=== PATIENT | female | born 1950 | race Hispanic/Latino ===

== ENCOUNTER 2018-03-14 19:11 | Inpatient (IN) | payer MEDICARE ==
[~2018-03-14] VITALS: Ht 152.4 cm; Wt 50.8 kg
[~2018-03-14 19:11] MED LIST: CLIN300C9 PO; GABA300S PO; LISI-613 PO; SIMV40TA5 PO; TYL3 PO
[2018-03-14] MEDS ORDERED: TETANUS/DIPHTHERIA TOXOID [ADULT] 0.5 ML VIAL IM ONE (20:38)
[2018-03-14 20:48] LABS: BASOPHILS % (AUTO) 1.7 % (0.0-5.0); HEMATOCRIT 30.1 % (36-48); LYMPHOCYTES % (AUTO) 33.9 % (21.0-51.0); MEAN CORPUSCULAR HEMOGLOBIN 28.8 pg (27.0-33.0); MEAN CORPUSCULAR VOLUME 87.3 fL (79-99); MONOCYTES % (AUTO) 6.5 % (3.0-13.0); NEUTROPHILS % (AUTO) 46.9 % (40.0-77.0); NUCLEATED RED BLOOD CELLS 0.1 % (0.0-0.19); PLATELET COUNT (AUTO) 200 K/uL (130-400); RED BLOOD CELL COUNT(AUTO) 3.44 MIL/uL (4.00-5.50); WHITE BLOOD COUNT (AUTO) 7.7 K/uL (4.8-10.8)
[2018-03-14] MEDS ORDERED: SODIUM CHLORIDE 0.9% 1000ML 2,000 ML IV ONE (20:48)
[2018-03-14 21:07] LABS: INR 0.85 (0.85-1.15); PARTIAL THROMBOPLASTIN TIME 26.6 SEC (26.3-35.5)
[2018-03-14 21:12] LABS: ALBUMIN 2.2 g/dL (3.5-5.0); BILIRUBIN,TOTAL 0.1 mg/dL (0.2-1.0); CREATININE 1.4 mg/dL (0.5-1.5); POTASSIUM 5.2 mmol/L (3.5-5.1); TOTAL PROTEIN, SERUM 6.9 g/dL (6.0-8.3)
[2018-03-14] MEDS ORDERED: INSULIN HUMULIN R 100 UNIT/ML 3ML ONE (21:59)
[2018-03-14] MEDS ORDERED: DEXTROSE 50%-WATER 50 ML DISP.SYRIN IV PRN (23:00)
[2018-03-14] MEDS: SODIUM CHLORIDE 0.9% 1000ML 1,000 ML IV SCH (23:00)
[2018-03-14] MEDS ORDERED: GLUCAGON 1MG KIT 1 MG ML IM PRN (23:00)
[2018-03-14 23:30] LABS: MAGNESIUM 2.9 mg/dL (1.80-2.40); PHOSPHORUS 4.4 mg/dL (2.5-4.9)
[2018-03-14 23:35] LABS: HEMOGLOBIN A1C 13.4 % (4.0-6.0)
[2018-03-14 23:40] LABS: ABG BASE EXCESS -3.7 mmol/L (-2.0-3.0); ABG HCO3 21.3 mmol/L (21.0-28.0); ABG OXYGEN SATURATION 96.9 % (95.0-99.0); ABG PCO2 39 mmHg (32-45)
[2018-03-14] MEDS ORDERED: SODIUM CHLORIDE 0.9% 1000ML 1,000 ML IV ONE (23:45)
[2018-03-15] VITALS (7 sets, daily range): BP systolic 106–210; BP diastolic 44–105
[2018-03-15] MEDS ORDERED: HYDROCODONE/ACETAMINOPHEN 5/325 MG TAB PO PRN ×2
[2018-03-15] MEDS ORDERED: ACETAMINOPHEN 325 MG TAB PO PRN
[2018-03-15] MEDS ORDERED: ONDANSETRON HCL 4 MG/2 ML VIAL IV PRN
[2018-03-15] MEDS ORDERED: INSULIN HUMULIN R 100 UNIT/ML 3ML ONE (00:15)
[2018-03-15 05:34] LABS: HEMATOCRIT 28.1 % (36-48); MEAN CORPUSCULAR HEMOGLOBIN 28.9 pg (27.0-33.0); MEAN CORPUSCULAR HGB CONC 33.6 g/dL (32.0-36.0); MEAN CORPUSCULAR VOLUME 85.9 fL (79-99); PLATELET COUNT (AUTO) 230 K/uL (130-400); RED BLOOD CELL COUNT(AUTO) 3.27 MIL/uL (4.00-5.50); RED CELL DISTRIBUTION WIDTH 13.2 % (11.0-15.5)
[2018-03-15 05:51] LABS: ALBUMIN 1.5 g/dL (3.5-5.0); BILIRUBIN,TOTAL 0.1 mg/dL (0.2-1.0); CREATININE 0.9 mg/dL (0.5-1.5); MAGNESIUM 2.4 mg/dL (1.80-2.40); PHOSPHORUS 2.8 mg/dL (2.5-4.9); POTASSIUM 3.6 mmol/L (3.5-5.1); TOTAL PROTEIN, SERUM 5.2 g/dL (6.0-8.3)
[2018-03-15] MEDS: INSULIN HUMULIN R 100 UNIT/ML 3ML SQ SCH ×4 (06:36→21:00)
[2018-03-15] MEDS: SODIUM CHLORIDE 0.9% 1000ML 1,000 ML IV SCH ×3 (06:36→22:25)
[2018-03-15] MEDS ORDERED: PNEUMOCOCCAL VACCINE POLYVALENT 0.5 ML/VIAL [PPV] IM SCH (08:30)
[2018-03-15] MEDS: PANTOPRAZOLE SODIUM 40 MG TABLET.DR PO SCH (08:35)
[2018-03-15] MEDS: ENOXAPARIN SODIUM 30 MG/0.3 ML SQ SCH (08:35)
[2018-03-15] MEDS: NEOMY SULF/BACITRAC ZN/POLY OINT 30GM TUBE TP SCH ×2 (08:36→21:00)
[2018-03-15] MEDS ORDERED: FURO20TA4 PO (08:47)
[2018-03-15] MEDS ORDERED: LISI-613 PO (08:47)
[2018-03-15] MEDS ORDERED: SITA1TAB6 PO (08:47)
[2018-03-15] MEDS ORDERED: CILO50TA PO (08:47)
[2018-03-15] MEDS ORDERED: ONDA4TAB10 PO (08:47)
[2018-03-15] MEDS ORDERED: ATOR10TA69 PO (08:47)
[2018-03-15] MEDS ORDERED: INSU100I21 SQ (08:47)
[2018-03-15] MEDS ORDERED: ASPI-1181 PO (08:47)
[2018-03-15] MEDS ORDERED: GABA-529 PO (08:47)
[2018-03-15] MEDS ORDERED: CLOP75TA32 PO (08:47)
[2018-03-15] MEDS ORDERED: HYDRALAZINE HCL 20 MG/ML VIAL ONE (11:17)
[2018-03-15] MEDS ORDERED: HYDRALAZINE HCL 20 MG/ML VIAL IV PRN (11:30)
[2018-03-15] MEDS: CLINDAMYCIN 600 MG/D5% WATER 50 ML IV SCH ×2 (13:12→22:26)
[2018-03-15] MEDS: INSULIN GLARGINE 100 UNITS/ML 10 ML VIAL SQ SCH (17:14)
[2018-03-15] MEDS ORDERED: PNEUMOCOCCAL VACCINE POLYVALENT 0.5 ML/VIAL [PPV] IM ONE (19:59)
[2018-03-15] MEDS ORDERED: ATORVASTATIN CALCIUM 10 MG TABLET PO SCH (21:00)
[2018-03-15] MEDS: GABAPENTIN 100 MG CAPSULE PO SCH (22:23)
[2018-03-15] MEDS: CILOSTAZOL 100 MG TAB PO SCH (22:24)
[2018-03-16] VITALS (7 sets, daily range): BP systolic 124–170; BP diastolic 64–84
[2018-03-16] MEDS: CLINDAMYCIN 600 MG/D5% WATER 50 ML IV SCH ×3 (05:24→13:08)
[2018-03-16 05:57] LABS: EOSINOPHILS % (AUTO) 13.9 % (0.0-8.0); HEMATOCRIT 25.7 % (36-48); LYMPHOCYTES % (AUTO) 27.5 % (21.0-51.0); MEAN CORPUSCULAR HGB CONC 33.8 g/dL (32.0-36.0); MEAN CORPUSCULAR VOLUME 85.9 fL (79-99); MONOCYTES % (AUTO) 6.7 % (3.0-13.0); NEUTROPHILS % (AUTO) 50.9 % (40.0-77.0); PLATELET COUNT (AUTO) 211 K/uL (130-400); RED BLOOD CELL COUNT(AUTO) 2.99 MIL/uL (4.00-5.50); RED CELL DISTRIBUTION WIDTH 13.4 % (11.0-15.5); WHITE BLOOD COUNT (AUTO) 10.3 K/uL (4.8-10.8)
[2018-03-16 06:15] LABS: CREATININE 1.3 mg/dL (0.5-1.5); POTASSIUM 4.8 mmol/L (3.5-5.1)
[2018-03-16] MEDS: INSULIN HUMULIN R 100 UNIT/ML 3ML SQ SCH ×2 (06:33→11:30)
[2018-03-16] MEDS: INSULIN GLARGINE 100 UNITS/ML 10 ML VIAL SQ SCH (06:48)
[2018-03-16] MEDS ORDERED: FUROSEMIDE 20 MG TABLET PO SCH (09:00)
[2018-03-16] MEDS ORDERED: LISINOPRIL 20 MG TABLET PO SCH (09:00)
[2018-03-16] MEDS ORDERED: CLOPIDOGREL BISULFATE 75 MG TAB PO SCH (09:00)
[2018-03-16] MEDS ORDERED: ASPIRIN 81 MG EC TAB PO SCH (09:00)
[2018-03-16] MEDS: CILOSTAZOL 100 MG TAB PO SCH (10:40)
[2018-03-16] MEDS: GABAPENTIN 100 MG CAPSULE PO SCH (10:41)
[2018-03-16] MEDS: NEOMY SULF/BACITRAC ZN/POLY OINT 30GM TUBE TP SCH (10:41)
[2018-03-16] MEDS: PANTOPRAZOLE SODIUM 40 MG TABLET.DR PO SCH (10:41)
[2018-03-16] MEDS: ENOXAPARIN SODIUM 30 MG/0.3 ML SQ SCH (10:41)
[2018-03-16] MEDS ORDERED: CLIN300C9 PO (12:21)
== END 2018-03-16 20:00 | disposition home or self-care (01) | DRG 603 ==
LOC: EDH 19:11 → EDHIP 22:30 → 3DH 03-15 01:05
PROVIDERS: ADMIT Internal Medicine; ATTEND Internal Medicine
PROC: 3E0234Z Introduction of Serum, Toxoid and Vaccine into Muscle, Percutaneous Approach (ICD-10-PCS; principal; 2018-03-14)
PROC: 3E0234Z Introduction of Serum, Toxoid and Vaccine into Muscle, Percutaneous Approach (ICD-10-PCS; 2018-03-14)
DX: L03.115 Cellulitis of right lower limb (principal); E87.1 Hypo-osmolality and hyponatremia; S09.90XA Unspecified injury of head, initial encounter; L03.116 Cellulitis of left lower limb; N95.0 Postmenopausal bleeding; S80.211A Abrasion, right knee, initial encounter; E11.65 Type 2 diabetes mellitus with hyperglycemia; E11.40 Type 2 diabetes mellitus with diabetic neuropathy, unspecified; E11.51 Type 2 diabetes mellitus with diabetic peripheral angiopathy without gangrene; E78.5 Hyperlipidemia, unspecified; I10 Essential (primary) hypertension; X58.XXXA Exposure to other specified factors, initial encounter; M19.90 Unspecified osteoarthritis, unspecified site; W01.0XXA Fall on same level from slipping, tripping and stumbling without subsequent striking against object, initial encounter; Y93.89 Activity, other specified; Y92.89 Other specified places as the place of occurrence of the external cause; Y99.8 Other external cause status; Z88.8 Allergy status to other drugs, medicaments and biological substances; Z59.0 Homelessness; Z83.3 Family history of diabetes mellitus; Z82.49 Family history of ischemic heart disease and other diseases of the circulatory system; Z23 Encounter for immunization
CPT/HCPCS: 36415; 36600; 70450; 71045; 72125; 73562; 76856; 80048; 80053; 82009; 82270; 82550; 82803; 82948; 83036; 83735; 84100; 84484; 85025; 85027; 85610; 85730; 90714; 90732; 93005; 93971; G0009; J0360; J1650; J1815; J3490; J7030; J7070

== ENCOUNTER 2018-07-24 23:56 | Inpatient (IN) | payer MEDICARE | END 2018-08-01 17:35 | LOC: EDH 23:56 → EDHIP 07-25 01:55 → 3CH 07-25 12:57 | DX: I12.9 Hypertensive chronic kidney disease with stage 1 through stage 4 chronic kidney disease, or unspecified chronic kidney disease (principal); J18.9 Pneumonia, unspecified organism; I50.33 Acute on chronic diastolic (congestive) heart failure; N17.9 Acute kidney failure, unspecified; J90 Pleural effusion, not elsewhere classified; N18.4 Chronic kidney disease, stage 4 (severe); I50.9 Heart failure, unspecified; N18.3 Chronic kidney disease, stage 3 (moderate); J20.9 Acute bronchitis, unspecified; M94.0 Chondrocostal junction syndrome [Tietze] ==

== ENCOUNTER 2018-11-20 20:24 | Inpatient (IN) | payer MEDICARE ==
[~2018-11-20] VITALS: Ht 152.4 cm; Wt 49.4 kg
[~2018-11-20 20:24] MED LIST changes: +AMLO5TAB9 PO; +ASPI-1181 PO; +ATOR10TA69 PO; +CILO50TA PO; +CLOP75TA32 PO; +FURO20TA4 PO; +GABA-529 PO; -GABA300S PO; +INSU100I21 SQ; +ONDA4TAB10 PO; -SIMV40TA5 PO; +SITA1TAB6 PO; -TYL3 PO
[2018-11-20 21:10] LABS: BASOPHILS % (AUTO) 2.1 % (0.0-5.0); EOSINOPHILS % (AUTO) 18.5 % (0.0-8.0); HEMATOCRIT 38.4 % (36-48); MEAN CORPUSCULAR HEMOGLOBIN 29.1 pg (27.0-33.0); MEAN CORPUSCULAR HGB CONC 32.3 g/dL (32.0-36.0); MEAN CORPUSCULAR VOLUME 90.1 fL (79-99); NEUTROPHILS % (AUTO) 59.4 % (40.0-77.0); NUCLEATED RED BLOOD CELLS 0.1 % (0.0-0.19); PLATELET COUNT (AUTO) 292 K/uL (130-400); RED BLOOD CELL COUNT(AUTO) 4.26 MIL/uL (4.00-5.50); WHITE BLOOD COUNT (AUTO) 8.8 K/uL (4.8-10.8)
[2018-11-20 21:20] LABS: CARBON DIOXIDE 27 mmol/L (21-32); CHLORIDE 100 mmol/L (101-111); CREATININE 1.7 mg/dL (0.5-1.5); GLOMERULAR FILTR. RATE CALC 32 mL/min (>60); GLUCOSE,RANDOM 285 mg/dL (70-105); POTASSIUM 4.3 mmol/L (3.5-5.1); SODIUM SERUM 136 mmol/L (136-145); UREA NITROGEN, BLOOD 18 mg/dL (7-18)
[2018-11-20 21:25] LABS: ALANINE AMINOTRANSFERASE 15 U/L (12-78); ALBUMIN 2.8 g/dL (3.5-5.0); ASPARTATE AMINOTRANSFERASE 41 U/L (10-37); BILIRUBIN,DIRECT < 0.1 mg/dL (0.0-0.3); BILIRUBIN,TOTAL 0.6 mg/dL (0.2-1.0); TOTAL PROTEIN, SERUM 7.3 g/dL (6.0-8.3)
[2018-11-21] MEDS ORDERED: FUROSEMIDE 10 MG/ML 4ML VIAL ONE ×2 (00:32→06:09)
[2018-11-21] MEDS ORDERED: LORAZEPAM 2 MG/ML 1 ML VIAL ONE (01:08)
[2018-11-21] MEDS ORDERED: ONDANSETRON HCL 4 MG/2 ML VIAL IV PRN (01:15)
[2018-11-21] MEDS ORDERED: GLUCAGON 1MG KIT 1 MG ML IM PRN (01:15)
[2018-11-21] MEDS ORDERED: ACETAMINOPHEN 325 MG TAB PO PRN (01:15)
[2018-11-21] MEDS ORDERED: DEXTROSE 50%-WATER 50 ML DISP.SYRIN IV PRN (01:15)
[2018-11-21] MEDS ORDERED: NITROGLYCERIN 0.4 MG SL TAB SL PRN (01:15)
[2018-11-21 01:57] LABS: HEMOGLOBIN A1C 6.7 % (4.0-6.0)
[2018-11-21] MEDS: FUROSEMIDE 10 MG/ML 4ML VIAL IV SCH ×2 (06:00→18:00)
[2018-11-21 06:15] LABS: EOSINOPHILS % (AUTO) 17.5 % (0.0-8.0); HEMATOCRIT 34.9 % (36-48); LYMPHOCYTES % (AUTO) 7.3 % (21.0-51.0); MEAN CORPUSCULAR HGB CONC 32.1 g/dL (32.0-36.0); MEAN CORPUSCULAR VOLUME 90.4 fL (79-99); MONOCYTES % (AUTO) 2.2 % (3.0-13.0); NUCLEATED RED BLOOD CELLS 0.1 % (0.0-0.19); PLATELET COUNT (AUTO) 258 K/uL (130-400); RED BLOOD CELL COUNT(AUTO) 3.86 MIL/uL (4.00-5.50); RED CELL DISTRIBUTION WIDTH 16.5 % (11.0-15.5); WHITE BLOOD COUNT (AUTO) 9.3 K/uL (4.8-10.8)
[2018-11-21 06:23] LABS: ALBUMIN 2.2 g/dL (3.5-5.0); BILIRUBIN,TOTAL 0.1 mg/dL (0.2-1.0); CREATININE 1.8 mg/dL (0.5-1.5); POTASSIUM 4.2 mmol/L (3.5-5.1); TOTAL PROTEIN, SERUM 6.2 g/dL (6.0-8.3)
[2018-11-21 06:43] LABS: B-TYPE NATRIURETIC PEPTIDE 1800 pg/mL (0-100)
[2018-11-21] MEDS: INSULIN HUMULIN R 100 UNIT/ML 3ML SQ SCH ×4 (07:30→21:30)
[2018-11-21] MEDS ORDERED: ACETAMINOPHEN 325 MG TAB ONE (07:46)
[2018-11-21] MEDS ORDERED: INSULIN HUMULIN R 100 UNIT/ML 3ML ONE (08:02)
[2018-11-21 08:40] VITALS: BP 186/73
[2018-11-21 11:00] VITALS: BP 165/76
[2018-11-21] MEDS: FAMOTIDINE 20MG TAB 20 MG TAB PO SCH (11:30)
[2018-11-21] MEDS: ENOXAPARIN SODIUM 30 MG/0.3 ML SQ SCH (11:31)
[2018-11-21 16:00] VITALS: BP 155/79
[2018-11-21] MEDS: ACETAMINOPHEN 325 MG TAB PO PRN (16:50)
[2018-11-21 20:10] VITALS: BP 183/73
[2018-11-22] VITALS (7 sets, daily range): BP systolic 156–188; BP diastolic 67–88
[2018-11-22] MEDS: HYDRALAZINE HCL 20 MG/ML VIAL IV PRN ×2 (00:44→21:59)
[2018-11-22 04:59] LABS: HEMATOCRIT 35.7 % (36-48); MEAN CORPUSCULAR HEMOGLOBIN 29.4 pg (27.0-33.0); MEAN CORPUSCULAR HGB CONC 32.4 g/dL (32.0-36.0); MEAN CORPUSCULAR VOLUME 90.5 fL (79-99); PLATELET COUNT (AUTO) 293 K/uL (130-400); RED BLOOD CELL COUNT(AUTO) 3.94 MIL/uL (4.00-5.50); RED CELL DISTRIBUTION WIDTH 16.4 % (11.0-15.5); WHITE BLOOD COUNT (AUTO) 8.2 K/uL (4.8-10.8)
[2018-11-22 05:21] LABS: B-TYPE NATRIURETIC PEPTIDE 3180 pg/mL (0-100)
[2018-11-22 05:23] LABS: ALBUMIN 2.2 g/dL (3.5-5.0); BILIRUBIN,TOTAL 0.2 mg/dL (0.2-1.0); CREATININE 2.4 mg/dL (0.5-1.5); PHOSPHORUS 4.2 mg/dL (2.5-4.9); POTASSIUM 4.3 mmol/L (3.5-5.1); TOTAL PROTEIN, SERUM 6.4 g/dL (6.0-8.3)
[2018-11-22] MEDS: FUROSEMIDE 10 MG/ML 4ML VIAL IV SCH ×2 (05:24→18:42)
[2018-11-22 06:03] LABS: BAND NEUTROPHILS % (MANUAL) 10 % (0-2); EOSINOPHILS % (MANUAL) 6 % (1-6); LYMPHOCYTES % (MANUAL) 14 % (22-44); MONOCYTES % (MANUAL) 8 % (2-9); SEGMENTED NEUTROPHILS % 62 % (40-70)
[2018-11-22 06:04] LABS: MAN.DIFF COMMENT-IMPRESSION MANUAL DIFFERENTIAL; PLATELET MORPHOLOGY COMMENT ADEQUATE
[2018-11-22] MEDS: INSULIN HUMULIN R 100 UNIT/ML 3ML SQ SCH ×4 (06:27→21:00)
[2018-11-22] MEDS: AMLODIPINE BESYLATE 5 MG TAB PO SCH (09:38)
[2018-11-22] MEDS: FAMOTIDINE 20MG TAB 20 MG TAB PO SCH (09:38)
[2018-11-22] MEDS: ENOXAPARIN SODIUM 30 MG/0.3 ML SQ SCH (09:39)
[2018-11-22] MEDS ORDERED: HEPARIN SODIUM 5000UNIT/ML 1ML VIAL ONE (14:20)
[2018-11-22] MEDS: LORAZEPAM 2 MG/ML 1 ML VIAL IVP PRN (16:10)
[2018-11-22] MEDS: NYSTATIN 15 GM POWDER TP SCH (21:45)
[2018-11-23] VITALS (7 sets, daily range): BP systolic 154–193; BP diastolic 55–99
[2018-11-23] MEDS: HYDRALAZINE HCL 20 MG/ML VIAL IV PRN ×2 (04:04→10:21)
[2018-11-23] MEDS: FUROSEMIDE 10 MG/ML 4ML VIAL IV SCH ×2 (06:15→18:00)
[2018-11-23] MEDS: INSULIN HUMULIN R 100 UNIT/ML 3ML SQ SCH ×4 (06:17→21:00)
[2018-11-23] MEDS: AMLODIPINE BESYLATE 5 MG TAB PO SCH (08:39)
[2018-11-23] MEDS: ENOXAPARIN SODIUM 30 MG/0.3 ML SQ SCH (08:39)
[2018-11-23] MEDS: FAMOTIDINE 20MG TAB 20 MG TAB PO SCH (08:39)
[2018-11-23] MEDS: LORAZEPAM 2 MG/ML 1 ML VIAL IVP PRN (08:41)
[2018-11-23] MEDS: NYSTATIN 15 GM POWDER TP SCH ×3 (09:00→22:14)
[2018-11-23] MEDS: OLANZAPINE ODT 5 MG TAB SL SCH (22:13)
[2018-11-23] MEDS: RISPERIDONE 1 MG TABLET PO SCH (22:48)
[2018-11-24 03:41] VITALS: BP 174/82
[2018-11-24 04:29] LABS: BASOPHILS % (AUTO) 2.8 % (0.0-5.0); EOSINOPHILS % (AUTO) 8.6 % (0.0-8.0); HEMATOCRIT 34.7 % (36-48); MEAN CORPUSCULAR HGB CONC 32.6 g/dL (32.0-36.0); MEAN CORPUSCULAR VOLUME 89.2 fL (79-99); MONOCYTES % (AUTO) 8.5 % (3.0-13.0); NEUTROPHILS % (AUTO) 62.1 % (40.0-77.0); PLATELET COUNT (AUTO) 268 K/uL (130-400); RED BLOOD CELL COUNT(AUTO) 3.89 MIL/uL (4.00-5.50); RED CELL DISTRIBUTION WIDTH 16.7 % (11.0-15.5)
[2018-11-24 04:41] LABS: B-TYPE NATRIURETIC PEPTIDE 1970 pg/mL (0-100)
[2018-11-24 04:50] LABS: CREATININE 2.2 mg/dL (0.5-1.5); POTASSIUM 3.3 mmol/L (3.5-5.1)
[2018-11-24] MEDS: FUROSEMIDE 10 MG/ML 4ML VIAL IV SCH ×2 (06:13→18:06)
[2018-11-24] MEDS: INSULIN HUMULIN R 100 UNIT/ML 3ML SQ SCH ×4 (06:33→21:00)
[2018-11-24 06:35] VITALS: BP 159/65
[2018-11-24] MEDS ORDERED: POTASSIUM CHLORIDE 20 MEQ ERTAB PO SCH (07:00)
[2018-11-24 08:00] VITALS: BP 166/71
[2018-11-24 12:00] VITALS: BP 188/81
[2018-11-24] MEDS: FAMOTIDINE 20MG TAB 20 MG TAB PO SCH (12:25)
[2018-11-24] MEDS: AMLODIPINE BESYLATE 5 MG TAB PO SCH ×2 (12:25→20:27)
[2018-11-24] MEDS: OLANZAPINE ODT 5 MG TAB SL SCH ×2 (12:25→18:00)
[2018-11-24] MEDS: RISPERIDONE 1 MG TABLET PO SCH ×3 (12:25→20:26)
[2018-11-24] MEDS: ACETAMINOPHEN 325 MG TAB PO PRN (12:28)
[2018-11-24] MEDS: ENOXAPARIN SODIUM 30 MG/0.3 ML SQ SCH (12:29)
[2018-11-24] MEDS: NYSTATIN 15 GM POWDER TP SCH ×3 (12:31→20:31)
[2018-11-24] MEDS: HYDRALAZINE HCL 20 MG/ML VIAL IV PRN (12:35)
[2018-11-24 16:00] VITALS: BP 169/72
[2018-11-24] MEDS ORDERED: POTASSIUM CHLORIDE 20 MEQ ERTAB PO ONE (18:04)
[2018-11-24 20:00] VITALS: BP 177/80
[2018-11-24] MEDS: METOPROLOL TARTRATE 25 MG TAB PO SCH (20:27)
[2018-11-25] VITALS: BP 184/82
[2018-11-25] MEDS: LORAZEPAM 1 MG TABLET PO PRN (02:42)
[2018-11-25 04:00] VITALS: BP 206/87
[2018-11-25] MEDS: HYDRALAZINE HCL 20 MG/ML VIAL IV PRN (04:33)
[2018-11-25 05:20] VITALS: BP 172/84
[2018-11-25] MEDS: FUROSEMIDE 10 MG/ML 4ML VIAL IV SCH ×2 (06:18→17:50)
[2018-11-25] MEDS: INSULIN HUMULIN R 100 UNIT/ML 3ML SQ SCH ×4 (06:22→21:00)
[2018-11-25 07:19] LABS: HEPATITIS A ANTIBODY IGM Negative (Negative); HEPATITIS B CORE IGM Negative (Negative); HEPATITIS Bs ANTIGEN SCREEN P Negative (Negative)
[2018-11-25 08:00] VITALS: BP 133/61
[2018-11-25] MEDS: OLANZAPINE ODT 5 MG TAB SL PRN ×2 (08:11→13:58)
[2018-11-25] MEDS: RISPERIDONE 1 MG TABLET PO SCH ×3 (08:11→21:45)
[2018-11-25] MEDS: NYSTATIN 15 GM POWDER TP SCH ×3 (08:12→21:50)
[2018-11-25] MEDS: AMLODIPINE BESYLATE 5 MG TAB PO SCH ×2 (09:00→21:00)
[2018-11-25] MEDS: ENOXAPARIN SODIUM 30 MG/0.3 ML SQ SCH (09:00)
[2018-11-25] MEDS: FAMOTIDINE 20MG TAB 20 MG TAB PO SCH (09:00)
[2018-11-25] MEDS: METOPROLOL TARTRATE 25 MG TAB PO SCH ×2 (09:00→21:00)
[2018-11-25] MEDS ORDERED: HALOPERIDOL LACTATE 5 MG/ML VIAL IM SCH (14:28)
[2018-11-25] MEDS: OLANZAPINE ODT 5 MG TAB SL SCH ×3 (15:00→21:45)
[2018-11-25] MEDS ORDERED: OLANZAPINE ODT 5 MG TAB SL PRN (15:12)
[2018-11-25 16:00] VITALS: BP 185/87
[2018-11-25 19:30] VITALS: BP 176/81
[2018-11-25] MEDS ORDERED: DIAZEPAM 5 MG TABLET PO ONE (21:00)
[2018-11-25] MEDS: MEMANTINE HCL 5 MG TABLET PO SCH (21:45)
[2018-11-26 00:05] LABS: AMMONIA 4 umol/L (11-32)
[2018-11-26 03:56] VITALS: BP 193/77
[2018-11-26] MEDS: FUROSEMIDE 10 MG/ML 4ML VIAL IV SCH ×2 (04:04→17:48)
[2018-11-26] MEDS: HYDRALAZINE HCL 20 MG/ML VIAL IV PRN (04:05)
[2018-11-26 05:08] LABS: HEMATOCRIT 34.6 % (36-48); MEAN CORPUSCULAR HGB CONC 32.4 g/dL (32.0-36.0); MEAN CORPUSCULAR VOLUME 89.5 fL (79-99); PLATELET COUNT (AUTO) 256 K/uL (130-400); RED BLOOD CELL COUNT(AUTO) 3.86 MIL/uL (4.00-5.50); RED CELL DISTRIBUTION WIDTH 16.9 % (11.0-15.5)
[2018-11-26 05:12] LABS: CREATININE 3.2 mg/dL (0.5-1.5); POTASSIUM 4.1 mmol/L (3.5-5.1)
[2018-11-26] MEDS: INSULIN HUMULIN R 100 UNIT/ML 3ML SQ SCH ×4 (06:25→20:58)
[2018-11-26 07:39] VITALS: BP 160/67
[2018-11-26] MEDS: FAMOTIDINE 20MG TAB 20 MG TAB PO SCH (09:00)
[2018-11-26] MEDS: METOPROLOL TARTRATE 25 MG TAB PO SCH ×2 (09:00→20:57)
[2018-11-26] MEDS: RISPERIDONE 1 MG TABLET PO SCH ×3 (09:00→20:57)
[2018-11-26] MEDS: OLANZAPINE ODT 5 MG TAB SL SCH ×3 (09:00→20:57)
[2018-11-26] MEDS: AMLODIPINE BESYLATE 5 MG TAB PO SCH ×2 (09:00→20:57)
[2018-11-26 11:15] VITALS: BP 133/57
[2018-11-26] MEDS: NYSTATIN 15 GM POWDER TP SCH ×3 (11:56→21:03)
[2018-11-26] MEDS: ENOXAPARIN SODIUM 30 MG/0.3 ML SQ SCH (12:11)
[2018-11-26] MEDS ORDERED: NITROGLYCERIN 0.4 MG SL TAB SL PRN (13:30)
[2018-11-26] MEDS ORDERED: SODIUM CHLORIDE 0.9% 1000ML 1,000 ML IV PRN (13:30)
[2018-11-26] MEDS ORDERED: 0.9% SODIUM CHLORIDE 1000 ML IV BAG IV PRN (13:30)
[2018-11-26] MEDS ORDERED: HEPARIN SODIUM 5000UNIT/ML 1ML VIAL IJ PRN ×2 (13:30)
[2018-11-26] MEDS ORDERED: LIDOCAINE HCL-MPF 1% 2ML VIAL IJ PRN (13:30)
[2018-11-26] MEDS: MEMANTINE HCL 5 MG TABLET PO SCH ×2 (14:09→20:57)
[2018-11-26] MEDS ORDERED: DIAZEPAM 2 MG TAB PO PRN (15:15)
[2018-11-26 16:07] VITALS: BP 170/74
[2018-11-26 20:26] VITALS: BP 141/62
[2018-11-26] MEDS: DIAZEPAM 2 MG TAB PO SCH (21:00)
[2018-11-27] VITALS: BP 124/76
[2018-11-27 04:13] VITALS: BP 174/62
[2018-11-27] MEDS: FUROSEMIDE 10 MG/ML 4ML VIAL IV SCH ×2 (05:13→17:06)
[2018-11-27] MEDS: INSULIN HUMULIN R 100 UNIT/ML 3ML SQ SCH ×4 (06:31→21:00)
[2018-11-27 07:34] VITALS: BP 177/80
[2018-11-27] MEDS: AMLODIPINE BESYLATE 5 MG TAB PO SCH ×2 (09:00→21:59)
[2018-11-27] MEDS: DIAZEPAM 2 MG TAB PO SCH ×3 (09:00→21:59)
[2018-11-27] MEDS: METOPROLOL TARTRATE 25 MG TAB PO SCH ×2 (09:00→21:59)
[2018-11-27] MEDS: ENOXAPARIN SODIUM 30 MG/0.3 ML SQ SCH (09:47)
[2018-11-27] MEDS: FAMOTIDINE 20MG TAB 20 MG TAB PO SCH (09:48)
[2018-11-27] MEDS: OLANZAPINE ODT 5 MG TAB SL SCH ×3 (09:48→21:59)
[2018-11-27] MEDS: RISPERIDONE 1 MG TABLET PO SCH ×3 (09:48→21:59)
[2018-11-27] MEDS: MEMANTINE HCL 5 MG TABLET PO SCH ×2 (09:48→21:59)
[2018-11-27] MEDS: NYSTATIN 15 GM POWDER TP SCH ×3 (09:56→22:00)
[2018-11-27 11:27] VITALS: BP 155/81
[2018-11-27 15:53] VITALS: BP 182/68
[2018-11-27] MEDS ORDERED: LACTULOSE 20 GM/30 ML UDCUP PO PRN ×2 (18:00→18:15)
[2018-11-27 19:31] VITALS: BP 163/78
[2018-11-28 00:08] VITALS: BP 181/75
[2018-11-28] MEDS: HYDRALAZINE HCL 20 MG/ML VIAL IV PRN (00:42)
[2018-11-28 03:10] VITALS: BP 157/68
[2018-11-28] MEDS: INSULIN HUMULIN R 100 UNIT/ML 3ML SQ SCH ×4 (05:56→20:08)
[2018-11-28] MEDS: FUROSEMIDE 10 MG/ML 4ML VIAL IV SCH ×2 (05:58→18:40)
[2018-11-28] MEDS: MEMANTINE HCL 5 MG TABLET PO SCH ×2 (09:46→20:03)
[2018-11-28] MEDS: DIAZEPAM 2 MG TAB PO SCH ×3 (09:46→20:03)
[2018-11-28] MEDS: AMLODIPINE BESYLATE 5 MG TAB PO SCH ×2 (09:46→20:03)
[2018-11-28] MEDS: RISPERIDONE 1 MG TABLET PO SCH ×3 (09:46→20:03)
[2018-11-28] MEDS: FAMOTIDINE 20MG TAB 20 MG TAB PO SCH (09:46)
[2018-11-28] MEDS: METOPROLOL TARTRATE 25 MG TAB PO SCH ×2 (09:46→20:03)
[2018-11-28] MEDS: OLANZAPINE ODT 5 MG TAB SL SCH ×3 (09:46→20:05)
[2018-11-28] MEDS: ENOXAPARIN SODIUM 30 MG/0.3 ML SQ SCH (09:48)
[2018-11-28] MEDS: NYSTATIN 15 GM POWDER TP SCH ×3 (09:56→20:12)
[2018-11-28 12:00] VITALS: BP 162/67
[2018-11-28 15:20] VITALS: BP 152/71
[2018-11-28 19:21] VITALS: BP 133/62
[2018-11-28 23:09] VITALS: BP 132/51
[2018-11-29 03:19] VITALS: BP 141/64
[2018-11-29 04:34] LABS: HEMATOCRIT 40.4 % (36-48); MEAN CORPUSCULAR HEMOGLOBIN 28.3 pg (27.0-33.0); MEAN CORPUSCULAR HGB CONC 31.8 g/dL (32.0-36.0); NUCLEATED RED BLOOD CELLS 0.1 % (0.0-0.19); PLATELET COUNT (AUTO) 214 K/uL (130-400); RED BLOOD CELL COUNT(AUTO) 4.54 MIL/uL (4.00-5.50); RED CELL DISTRIBUTION WIDTH 16.2 % (11.0-15.5); WHITE BLOOD COUNT (AUTO) 7.4 K/uL (4.8-10.8)
[2018-11-29 04:42] LABS: CREATININE 2.5 mg/dL (0.5-1.5); PHOSPHORUS 4.1 mg/dL (2.5-4.9); POTASSIUM 4.2 mmol/L (3.5-5.1)
[2018-11-29] MEDS: FUROSEMIDE 10 MG/ML 4ML VIAL IV SCH ×2 (05:35→18:30)
[2018-11-29 05:41] LABS: BAND NEUTROPHILS % (MANUAL) 3 % (0-2); EOSINOPHILS % (MANUAL) 13 % (1-6); LYMPHOCYTES % (MANUAL) 28 % (22-44); MONOCYTES % (MANUAL) 9 % (2-9); REACTIVE LYMPHOCYTES 2 % (0-0); SEGMENTED NEUTROPHILS % 45 % (40-70)
[2018-11-29 05:43] LABS: MAN.DIFF COMMENT-IMPRESSION MANUAL DIFFERENTIAL; PLATELET MORPHOLOGY COMMENT ADEQUATE
[2018-11-29] MEDS: INSULIN HUMULIN R 100 UNIT/ML 3ML SQ SCH ×4 (06:21→21:00)
[2018-11-29] MEDS: METOPROLOL TARTRATE 25 MG TAB PO SCH ×2 (07:22→21:28)
[2018-11-29] MEDS: MEMANTINE HCL 5 MG TABLET PO SCH ×2 (07:22→21:27)
[2018-11-29] MEDS: OLANZAPINE ODT 5 MG TAB SL SCH ×3 (07:22→21:27)
[2018-11-29] MEDS: DIAZEPAM 2 MG TAB PO SCH ×3 (07:22→21:28)
[2018-11-29] MEDS: FAMOTIDINE 20MG TAB 20 MG TAB PO SCH (07:22)
[2018-11-29] MEDS: NYSTATIN 15 GM POWDER TP SCH ×3 (07:23→21:32)
[2018-11-29] MEDS: RISPERIDONE 1 MG TABLET PO SCH ×3 (07:23→21:31)
[2018-11-29] MEDS: ENOXAPARIN SODIUM 30 MG/0.3 ML SQ SCH (07:23)
[2018-11-29] MEDS: AMLODIPINE BESYLATE 5 MG TAB PO SCH ×2 (07:26→21:27)
[2018-11-29 07:30] VITALS: BP 168/68
[2018-11-29 11:10] VITALS: BP 120/51
[2018-11-29 15:31] VITALS: BP 139/59
[2018-11-29 19:20] VITALS: BP 143/57
[2018-11-29 23:35] VITALS: BP 184/76
[2018-11-30] VITALS (7 sets, daily range): BP systolic 134–170; BP diastolic 60–69
[2018-11-30 05:10] LABS: MEAN CORPUSCULAR HEMOGLOBIN 28.8 pg (27.0-33.0); MEAN CORPUSCULAR HGB CONC 32.3 g/dL (32.0-36.0); MEAN CORPUSCULAR VOLUME 89.1 fL (79-99); NUCLEATED RED BLOOD CELLS 0.2 % (0.0-0.19); PLATELET COUNT (AUTO) 212 K/uL (130-400); RED CELL DISTRIBUTION WIDTH 15.9 % (11.0-15.5); WHITE BLOOD COUNT (AUTO) 5.5 K/uL (4.8-10.8)
[2018-11-30 05:14] LABS: CREATININE 1.8 mg/dL (0.5-1.5); POTASSIUM 3.7 mmol/L (3.5-5.1)
[2018-11-30] MEDS: FUROSEMIDE 10 MG/ML 4ML VIAL IV SCH ×2 (06:01→18:29)
[2018-11-30] MEDS: INSULIN HUMULIN R 100 UNIT/ML 3ML SQ SCH ×4 (06:02→21:00)
[2018-11-30] MEDS: AMLODIPINE BESYLATE 5 MG TAB PO SCH ×2 (08:38→22:21)
[2018-11-30] MEDS: METOPROLOL TARTRATE 25 MG TAB PO SCH ×2 (08:38→22:22)
[2018-11-30] MEDS: FAMOTIDINE 20MG TAB 20 MG TAB PO SCH (08:38)
[2018-11-30] MEDS: DIAZEPAM 2 MG TAB PO SCH ×3 (08:38→22:22)
[2018-11-30] MEDS: MEMANTINE HCL 5 MG TABLET PO SCH ×2 (08:38→22:21)
[2018-11-30] MEDS: OLANZAPINE ODT 5 MG TAB SL SCH ×3 (08:39→22:22)
[2018-11-30] MEDS: RISPERIDONE 1 MG TABLET PO SCH ×3 (08:40→22:22)
[2018-11-30] MEDS: NYSTATIN 15 GM POWDER TP SCH ×3 (08:40→22:22)
[2018-11-30] MEDS: ENOXAPARIN SODIUM 30 MG/0.3 ML SQ SCH (08:40)
[2018-12-01] VITALS: BP 164/69
[2018-12-01 04:00] VITALS: BP 162/72
[2018-12-01] MEDS: FUROSEMIDE 10 MG/ML 4ML VIAL IV SCH ×2 (05:22→18:47)
[2018-12-01 06:14] LABS: HEMATOCRIT 37.7 % (36-48); MEAN CORPUSCULAR HEMOGLOBIN 28.1 pg (27.0-33.0); MEAN CORPUSCULAR HGB CONC 31.7 g/dL (32.0-36.0); MEAN CORPUSCULAR VOLUME 88.8 fL (79-99); PLATELET COUNT (AUTO) 265 K/uL (130-400); RED BLOOD CELL COUNT(AUTO) 4.24 MIL/uL (4.00-5.50); RED CELL DISTRIBUTION WIDTH 15.9 % (11.0-15.5); WHITE BLOOD COUNT (AUTO) 5.8 K/uL (4.8-10.8)
[2018-12-01 06:28] LABS: CREATININE 2.4 mg/dL (0.5-1.5)
[2018-12-01] MEDS: INSULIN HUMULIN R 100 UNIT/ML 3ML SQ SCH ×4 (06:36→21:00)
[2018-12-01 07:07] VITALS: BP 166/68
[2018-12-01] MEDS: ENOXAPARIN SODIUM 30 MG/0.3 ML SQ SCH (10:39)
[2018-12-01] MEDS: METOPROLOL TARTRATE 25 MG TAB PO SCH ×2 (10:39→23:14)
[2018-12-01] MEDS: OLANZAPINE ODT 5 MG TAB SL SCH ×3 (10:40→23:13)
[2018-12-01] MEDS: MEMANTINE HCL 5 MG TABLET PO SCH ×2 (10:40→23:13)
[2018-12-01] MEDS: FAMOTIDINE 20MG TAB 20 MG TAB PO SCH (10:40)
[2018-12-01] MEDS: AMLODIPINE BESYLATE 5 MG TAB PO SCH ×2 (10:40→23:14)
[2018-12-01] MEDS: RISPERIDONE 1 MG TABLET PO SCH ×3 (10:40→23:14)
[2018-12-01] MEDS: NYSTATIN 15 GM POWDER TP SCH ×3 (10:45→22:52)
[2018-12-01] MEDS: DIAZEPAM 2 MG TAB PO SCH ×3 (10:45→23:13)
[2018-12-01 11:08] VITALS: BP 147/66
[2018-12-01 16:00] VITALS: BP 141/65
[2018-12-01 20:00] VITALS: BP 159/66
[2018-12-02] VITALS (7 sets, daily range): BP systolic 134–171; BP diastolic 55–67
[2018-12-02] MEDS: HYDRALAZINE HCL 20 MG/ML VIAL IV PRN (00:52)
[2018-12-02 05:40] LABS: HEMATOCRIT 36.8 % (36-48); MEAN CORPUSCULAR HEMOGLOBIN 28.9 pg (27.0-33.0); MEAN CORPUSCULAR HGB CONC 32.7 g/dL (32.0-36.0); MEAN CORPUSCULAR VOLUME 88.2 fL (79-99); PLATELET COUNT (AUTO) 218 K/uL (130-400); RED BLOOD CELL COUNT(AUTO) 4.17 MIL/uL (4.00-5.50); WHITE BLOOD COUNT (AUTO) 4.7 K/uL (4.8-10.8)
[2018-12-02 05:56] LABS: CREATININE 2.7 mg/dL (0.5-1.5)
[2018-12-02] MEDS: INSULIN HUMULIN R 100 UNIT/ML 3ML SQ SCH ×4 (06:24→21:15)
[2018-12-02] MEDS: FUROSEMIDE 10 MG/ML 4ML VIAL IV SCH ×2 (06:25→17:52)
[2018-12-02] MEDS: OLANZAPINE ODT 5 MG TAB SL SCH ×3 (09:00→21:10)
[2018-12-02] MEDS: RISPERIDONE 1 MG TABLET PO SCH ×3 (09:00→21:00)
[2018-12-02] MEDS: NYSTATIN 15 GM POWDER TP SCH ×3 (09:00→21:15)
[2018-12-02] MEDS: DIAZEPAM 2 MG TAB PO SCH ×3 (09:00→21:10)
[2018-12-02] MEDS: METOPROLOL TARTRATE 25 MG TAB PO SCH ×2 (13:20→21:09)
[2018-12-02] MEDS: MEMANTINE HCL 5 MG TABLET PO SCH ×2 (13:20→21:10)
[2018-12-02] MEDS: FAMOTIDINE 20MG TAB 20 MG TAB PO SCH (13:21)
[2018-12-02] MEDS: AMLODIPINE BESYLATE 5 MG TAB PO SCH ×2 (13:21→21:10)
[2018-12-02] MEDS: ENOXAPARIN SODIUM 30 MG/0.3 ML SQ SCH (13:22)
[2018-12-03 03:49] VITALS: BP 148/70
[2018-12-03 05:11] LABS: BASOPHILS % (AUTO) 1.2 % (0.0-5.0); EOSINOPHILS % (AUTO) 16.5 % (0.0-8.0); HEMATOCRIT 35.2 % (36-48); MEAN CORPUSCULAR HGB CONC 32.8 g/dL (32.0-36.0); MEAN CORPUSCULAR VOLUME 88.4 fL (79-99); MONOCYTES % (AUTO) 12.5 % (3.0-13.0); NEUTROPHILS % (AUTO) 39.8 % (40.0-77.0); NUCLEATED RED BLOOD CELLS 0.1 % (0.0-0.19); PLATELET COUNT (AUTO) 196 K/uL (130-400); RED BLOOD CELL COUNT(AUTO) 3.98 MIL/uL (4.00-5.50); RED CELL DISTRIBUTION WIDTH 15.5 % (11.0-15.5)
[2018-12-03 05:21] LABS: CREATININE 2.3 mg/dL (0.5-1.5); POTASSIUM 4.1 mmol/L (3.5-5.1)
[2018-12-03] MEDS: INSULIN HUMULIN R 100 UNIT/ML 3ML SQ SCH ×4 (06:15→20:14)
[2018-12-03] MEDS: FUROSEMIDE 10 MG/ML 4ML VIAL IV SCH ×2 (06:16→17:34)
[2018-12-03 08:00] VITALS: BP 148/58
[2018-12-03] MEDS: RISPERIDONE 1 MG TABLET PO SCH ×3 (08:44→20:11)
[2018-12-03] MEDS: FAMOTIDINE 20MG TAB 20 MG TAB PO SCH (08:44)
[2018-12-03] MEDS: AMLODIPINE BESYLATE 5 MG TAB PO SCH ×2 (08:44→20:10)
[2018-12-03] MEDS: METOPROLOL TARTRATE 25 MG TAB PO SCH ×2 (08:45→20:11)
[2018-12-03] MEDS: MEMANTINE HCL 5 MG TABLET PO SCH ×2 (08:45→20:11)
[2018-12-03] MEDS: DIAZEPAM 2 MG TAB PO SCH ×2 (08:45→15:30)
[2018-12-03] MEDS: OLANZAPINE ODT 5 MG TAB SL SCH ×3 (08:46→20:11)
[2018-12-03] MEDS: NYSTATIN 15 GM POWDER TP SCH ×3 (08:47→20:14)
[2018-12-03] MEDS: ENOXAPARIN SODIUM 30 MG/0.3 ML SQ SCH (08:47)
[2018-12-03 12:00] VITALS: BP 157/76
[2018-12-03 16:00] VITALS: BP 157/76
[2018-12-03 20:29] VITALS: BP 150/63
[2018-12-04 00:19] VITALS: BP 156/78
[2018-12-04 04:49] VITALS: BP 168/62
[2018-12-04] MEDS: FUROSEMIDE 10 MG/ML 4ML VIAL IV SCH ×2 (06:33→17:19)
[2018-12-04] MEDS: INSULIN HUMULIN R 100 UNIT/ML 3ML SQ SCH ×4 (06:33→21:00)
[2018-12-04 08:00] VITALS: BP 181/69
[2018-12-04] MEDS: ENOXAPARIN SODIUM 30 MG/0.3 ML SQ SCH (09:00)
[2018-12-04] MEDS: METOPROLOL TARTRATE 25 MG TAB PO SCH ×2 (09:00→22:21)
[2018-12-04] MEDS: RISPERIDONE 1 MG TABLET PO SCH ×2 (09:00→15:31)
[2018-12-04] MEDS: AMLODIPINE BESYLATE 5 MG TAB PO SCH ×2 (09:00→22:21)
[2018-12-04] MEDS: MEMANTINE HCL 5 MG TABLET PO SCH ×2 (10:24→22:21)
[2018-12-04] MEDS: OLANZAPINE ODT 5 MG TAB SL SCH ×3 (10:24→22:24)
[2018-12-04] MEDS: FAMOTIDINE 20MG TAB 20 MG TAB PO SCH (10:25)
[2018-12-04] MEDS: NYSTATIN 15 GM POWDER TP SCH ×3 (10:25→22:22)
[2018-12-04 11:50] VITALS: BP 174/74
[2018-12-04 16:00] VITALS: BP 165/78
[2018-12-04 20:00] VITALS: BP 178/71
[2018-12-05 00:04] VITALS: BP 174/81
[2018-12-05] MEDS: RISPERIDONE 1 MG TABLET PO SCH ×4 (02:54→21:00)
[2018-12-05 04:05] VITALS: BP 162/67
[2018-12-05] MEDS: INSULIN HUMULIN R 100 UNIT/ML 3ML SQ SCH ×4 (05:53→21:33)
[2018-12-05] MEDS: FUROSEMIDE 10 MG/ML 4ML VIAL IV SCH ×2 (05:55→17:22)
[2018-12-05 06:14] LABS: BASOPHILS % (AUTO) 2.1 % (0.0-5.0); EOSINOPHILS % (AUTO) 14.8 % (0.0-8.0); HEMATOCRIT 37.4 % (36-48); LYMPHOCYTES % (AUTO) 27.6 % (21.0-51.0); MEAN CORPUSCULAR HEMOGLOBIN 28.7 pg (27.0-33.0); MEAN CORPUSCULAR HGB CONC 32.7 g/dL (32.0-36.0); MEAN CORPUSCULAR VOLUME 87.8 fL (79-99); MONOCYTES % (AUTO) 9.3 % (3.0-13.0); NEUTROPHILS % (AUTO) 46.2 % (40.0-77.0); PLATELET COUNT (AUTO) 193 K/uL (130-400); RED BLOOD CELL COUNT(AUTO) 4.26 MIL/uL (4.00-5.50); RED CELL DISTRIBUTION WIDTH 15.7 % (11.0-15.5)
[2018-12-05 06:27] LABS: CREATININE 1.9 mg/dL (0.5-1.5); PHOSPHORUS 3.6 mg/dL (2.5-4.9); POTASSIUM 3.8 mmol/L (3.5-5.1)
[2018-12-05 07:00] VITALS: BP 164/73
[2018-12-05] MEDS: MEMANTINE HCL 5 MG TABLET PO SCH ×2 (08:05→20:38)
[2018-12-05] MEDS: OLANZAPINE ODT 5 MG TAB SL SCH ×3 (08:05→20:38)
[2018-12-05] MEDS: FAMOTIDINE 20MG TAB 20 MG TAB PO SCH (08:05)
[2018-12-05] MEDS: AMLODIPINE BESYLATE 5 MG TAB PO SCH ×2 (08:05→20:38)
[2018-12-05] MEDS: METOPROLOL TARTRATE 25 MG TAB PO SCH ×2 (08:05→20:38)
[2018-12-05] MEDS: NYSTATIN 15 GM POWDER TP SCH ×3 (08:06→22:57)
[2018-12-05] MEDS: ENOXAPARIN SODIUM 30 MG/0.3 ML SQ SCH (08:06)
[2018-12-05 10:08] VITALS: BP 141/51
[2018-12-05 11:00] VITALS: BP 153/64
[2018-12-05 16:00] VITALS: BP 139/86
[2018-12-06 00:10] VITALS: BP 152/67
[2018-12-06] MEDS: LORAZEPAM 1 MG TABLET PO PRN (02:53)
[2018-12-06 04:02] VITALS: BP 148/59
[2018-12-06 05:06] LABS: BASOPHILS % (AUTO) 0.7 % (0.0-5.0); EOSINOPHILS % (AUTO) 11.5 % (0.0-8.0); HEMATOCRIT 35.7 % (36-48); LYMPHOCYTES % (AUTO) 28.3 % (21.0-51.0); MEAN CORPUSCULAR HEMOGLOBIN 29.1 pg (27.0-33.0); MEAN CORPUSCULAR HGB CONC 33.7 g/dL (32.0-36.0); MEAN CORPUSCULAR VOLUME 86.6 fL (79-99); MONOCYTES % (AUTO) 11.4 % (3.0-13.0); NEUTROPHILS % (AUTO) 48.1 % (40.0-77.0); PLATELET COUNT (AUTO) 192 K/uL (130-400); RED BLOOD CELL COUNT(AUTO) 4.13 MIL/uL (4.00-5.50); RED CELL DISTRIBUTION WIDTH 15.3 % (11.0-15.5)
[2018-12-06 05:21] LABS: CREATININE 2.7 mg/dL (0.5-1.5); POTASSIUM 4.2 mmol/L (3.5-5.1)
[2018-12-06] MEDS: INSULIN HUMULIN R 100 UNIT/ML 3ML SQ SCH ×4 (05:56→21:00)
[2018-12-06] MEDS: FUROSEMIDE 10 MG/ML 4ML VIAL IV SCH ×2 (06:00→17:49)
[2018-12-06 07:00] VITALS: BP 149/55
[2018-12-06] MEDS: NYSTATIN 15 GM POWDER TP SCH ×3 (07:30→14:00)
[2018-12-06] MEDS: ENOXAPARIN SODIUM 30 MG/0.3 ML SQ SCH (09:00)
[2018-12-06] MEDS: AMLODIPINE BESYLATE 5 MG TAB PO SCH ×2 (10:37→21:17)
[2018-12-06] MEDS: MEMANTINE HCL 5 MG TABLET PO SCH ×2 (10:38→21:18)
[2018-12-06] MEDS: METOPROLOL TARTRATE 25 MG TAB PO SCH ×2 (10:38→21:18)
[2018-12-06] MEDS: OLANZAPINE ODT 5 MG TAB SL SCH ×3 (10:38→21:18)
[2018-12-06] MEDS: FAMOTIDINE 20MG TAB 20 MG TAB PO SCH (10:38)
[2018-12-06] MEDS: RISPERIDONE 1 MG TABLET PO SCH ×3 (10:38→21:17)
[2018-12-06 11:00] VITALS: BP 130/95
[2018-12-06 16:00] VITALS: BP 152/65
[2018-12-06 19:00] VITALS: BP 163/74
[2018-12-07] VITALS: BP 137/67
[2018-12-07] MEDS: LORAZEPAM 1 MG TABLET PO PRN ×2 (01:33→23:37)
[2018-12-07 04:00] VITALS: BP 173/66
[2018-12-07] MEDS: INSULIN HUMULIN R 100 UNIT/ML 3ML SQ SCH ×4 (06:14→20:44)
[2018-12-07] MEDS: FUROSEMIDE 10 MG/ML 4ML VIAL IV SCH ×2 (06:15→18:49)
[2018-12-07 08:00] VITALS: BP 155/60
[2018-12-07] MEDS: NYSTATIN 15 GM POWDER TP SCH ×3 (09:00→23:39)
[2018-12-07] MEDS: AMLODIPINE BESYLATE 5 MG TAB PO SCH ×2 (09:48→21:26)
[2018-12-07] MEDS: ENOXAPARIN SODIUM 30 MG/0.3 ML SQ SCH (09:48)
[2018-12-07] MEDS: METOPROLOL TARTRATE 25 MG TAB PO SCH ×2 (09:48→21:26)
[2018-12-07] MEDS: MEMANTINE HCL 5 MG TABLET PO SCH ×2 (09:48→21:26)
[2018-12-07] MEDS: FAMOTIDINE 20MG TAB 20 MG TAB PO SCH (09:49)
[2018-12-07] MEDS: OLANZAPINE ODT 5 MG TAB SL SCH ×3 (09:49→21:26)
[2018-12-07] MEDS: RISPERIDONE 1 MG TABLET PO SCH ×3 (09:49→21:26)
[2018-12-07 12:00] VITALS: BP 154/60
[2018-12-07 16:00] VITALS: BP 164/72
[2018-12-07 19:12] VITALS: BP 163/75
[2018-12-08] VITALS: BP 175/78
[2018-12-08 04:00] VITALS: BP 171/81
[2018-12-08 06:44] LABS: BASOPHILS % (AUTO) 4.6 % (0.0-5.0); EOSINOPHILS % (AUTO) 7.8 % (0.0-8.0); HEMATOCRIT 42.1 % (36-48); LYMPHOCYTES % (AUTO) 19.6 % (21.0-51.0); MEAN CORPUSCULAR HEMOGLOBIN 28.3 pg (27.0-33.0); MEAN CORPUSCULAR HGB CONC 32.6 g/dL (32.0-36.0); MEAN CORPUSCULAR VOLUME 86.8 fL (79-99); MONOCYTES % (AUTO) 9.3 % (3.0-13.0); NEUTROPHILS % (AUTO) 58.7 % (40.0-77.0); PLATELET COUNT (AUTO) 207 K/uL (130-400); RED BLOOD CELL COUNT(AUTO) 4.85 MIL/uL (4.00-5.50); RED CELL DISTRIBUTION WIDTH 15.2 % (11.0-15.5); WHITE BLOOD COUNT (AUTO) 4.8 K/uL (4.8-10.8)
[2018-12-08 06:46] LABS: CREATININE 2.5 mg/dL (0.5-1.5); POTASSIUM 4.1 mmol/L (3.5-5.1)
[2018-12-08] MEDS: INSULIN HUMULIN R 100 UNIT/ML 3ML SQ SCH ×2 (06:52→11:30)
[2018-12-08] MEDS: FUROSEMIDE 10 MG/ML 4ML VIAL IV SCH (06:54)
[2018-12-08 08:00] VITALS: BP 136/53
[2018-12-08] MEDS: MEMANTINE HCL 5 MG TABLET PO SCH (09:41)
[2018-12-08] MEDS: AMLODIPINE BESYLATE 5 MG TAB PO SCH (09:42)
[2018-12-08] MEDS: FAMOTIDINE 20MG TAB 20 MG TAB PO SCH (09:42)
[2018-12-08] MEDS: METOPROLOL TARTRATE 25 MG TAB PO SCH (09:42)
[2018-12-08] MEDS: ENOXAPARIN SODIUM 30 MG/0.3 ML SQ SCH (09:43)
[2018-12-08] MEDS: RISPERIDONE 1 MG TABLET PO SCH ×2 (09:45→14:00)
[2018-12-08] MEDS: OLANZAPINE ODT 5 MG TAB SL SCH ×2 (09:45→14:00)
[2018-12-08] MEDS: NYSTATIN 15 GM POWDER TP SCH ×2 (09:46→14:18)
[2018-12-08 12:00] VITALS: BP 163/70
== END 2018-12-08 14:15 | DRG 291 ==
LOC: EDH 20:24 → EDHIP 11-21 01:00 → 4BH 11-21 08:05 → 3BH 12-01 21:16
PROVIDERS: ADMIT Internal Medicine; ATTEND Internal Medicine
PROC: 5A1D70Z Performance of Urinary Filtration, Intermittent, Less than 6 Hours Per Day (ICD-10-PCS; principal; 2018-11-21)
PROC: 5A1D70Z Performance of Urinary Filtration, Intermittent, Less than 6 Hours Per Day (ICD-10-PCS; 2018-11-23)
PROC: 5A1D70Z Performance of Urinary Filtration, Intermittent, Less than 6 Hours Per Day (ICD-10-PCS; 2018-11-26)
PROC: 5A1D70Z Performance of Urinary Filtration, Intermittent, Less than 6 Hours Per Day (ICD-10-PCS; 2018-11-27)
PROC: 5A1D70Z Performance of Urinary Filtration, Intermittent, Less than 6 Hours Per Day (ICD-10-PCS; 2018-11-29)
PROC: 5A1D70Z Performance of Urinary Filtration, Intermittent, Less than 6 Hours Per Day (ICD-10-PCS; 2018-12-02)
PROC: 5A1D70Z Performance of Urinary Filtration, Intermittent, Less than 6 Hours Per Day (ICD-10-PCS; 2018-12-04)
PROC: 5A1D70Z Performance of Urinary Filtration, Intermittent, Less than 6 Hours Per Day (ICD-10-PCS; 2018-12-06)
DX: I13.2 Hypertensive heart and chronic kidney disease with heart failure and with stage 5 chronic kidney disease, or end stage renal disease (principal); I50.33 Acute on chronic diastolic (congestive) heart failure; N18.6 End stage renal disease; F03.91 Unspecified dementia, unspecified severity, with behavioral disturbance; G93.40 Encephalopathy, unspecified; E11.65 Type 2 diabetes mellitus with hyperglycemia; R09.02 Hypoxemia; E11.22 Type 2 diabetes mellitus with diabetic chronic kidney disease; I25.10 Atherosclerotic heart disease of native coronary artery without angina pectoris; R45.1 Restlessness and agitation; F41.9 Anxiety disorder, unspecified; E11.40 Type 2 diabetes mellitus with diabetic neuropathy, unspecified; E11.51 Type 2 diabetes mellitus with diabetic peripheral angiopathy without gangrene; E78.00 Pure hypercholesterolemia, unspecified; E78.5 Hyperlipidemia, unspecified; Z99.2 Dependence on renal dialysis; Z79.899 Other long term (current) drug therapy; Z91.19 Patient's noncompliance with other medical treatment and regimen; Z91.14 Patient's other noncompliance with medication regimen; Z88.8 Allergy status to other drugs, medicaments and biological substances; Z88.3 Allergy status to other anti-infective agents; Z83.3 Family history of diabetes mellitus; Z82.49 Family history of ischemic heart disease and other diseases of the circulatory system
CPT/HCPCS: 36415; 70450; 71045; 80048; 80053; 80074; 80076; 82140; 82607; 82948; 83036; 83735; 83880; 84100; 84484; 85025; 85027; 90935; 93005; 97039; 99291; G0378; J0360; J1630; J1644; J1650; J1815; J1940; J2060; J7070